=== PATIENT | male | born 1960 | race Caucasian/White ===

== ENCOUNTER 2020-09-22 02:02 | Emergency (ER) | payer OTHER ==
[~2020-09-22] VITALS: Ht 185.4 cm; Wt 95.5 kg
[2020-09-22 02:07] VITALS: BP 136/95
[2020-09-22] MEDS ORDERED: ibuprofen tablet 400 MG TABLET PO ONE (02:40)
== END 2020-09-22 03:00 | disposition home or self-care (01) ==
LOC: ER 02:04
DX: M25.562 Pain in left knee (principal); M25.462 Effusion, left knee
CPT/HCPCS: 73564; 99283